=== PATIENT | female | born 1995 | race Two or more races ===

== ENCOUNTER 2024-10-14 09:01 | Outpatient (CLI) | payer OTHER | END 2024-10-14 09:07 | disposition home or self-care (01) | LOC: PRENATAL 09:01 | PROVIDERS: ATTEND Obstetrics & Gynecology Maternal & Fetal Medicine | DX: O36.80X0 Pregnancy with inconclusive fetal viability, not applicable or unspecified (principal); Z36.82 Encounter for antenatal screening for nuchal translucency; Z14.8 Genetic carrier of other disease; Z3A.12 12 weeks gestation of pregnancy ==

== ENCOUNTER 2024-12-10 07:31 | Outpatient (CLI) | payer OTHER | END 2024-12-10 07:39 | disposition home or self-care (01) | LOC: PRENATAL 07:31 | PROVIDERS: ATTEND Obstetrics & Gynecology Maternal & Fetal Medicine | DX: O44.00 Complete placenta previa NOS or without hemorrhage, unspecified trimester (principal); Z3A.20 20 weeks gestation of pregnancy ==